=== PATIENT | male | born 1995 | race Caucasian/White ===

== ENCOUNTER 2017-12-11 03:12 | Emergency (ER) | payer BC, OTHER ==
[2017-12-11] MEDS ORDERED: Lidocaine 1% w/Epinephrine 1:100K 20 ML VIAL ONE (03:22)
[2017-12-11] MEDS ORDERED: Bacitracin Zinc 1 Packet ONE (03:45)
== END 2017-12-11 03:53 | disposition home or self-care (01) ==
LOC: SCSER 03:12
DX: S01.511A Laceration without foreign body of lip, initial encounter (principal); S01.512A Laceration without foreign body of oral cavity, initial encounter; F17.220 Nicotine dependence, chewing tobacco, uncomplicated; Y04.0XXA Assault by unarmed brawl or fight, initial encounter
CPT/HCPCS: 12051; J2001